=== PATIENT | male | born 1980 | race Hispanic/Latino ===

== ENCOUNTER 2019-11-14 21:09 | Emergency (ER) | payer OTHER, SELFPAY ==
[2019-11-14] MEDS ORDERED: ONDANSETRON HCL 4 MG/2 ML VIAL ONE (21:59)
[2019-11-14] MEDS ORDERED: KETOROLAC TROMETHAMINE 30MG/ML ONE (22:00)
[2019-11-14] MEDS ORDERED: SODIUM CHLORIDE 0.9% 500ML 500 ML IV ONE (22:01)
[2019-11-14 22:03] LABS: CREATININE 0.9 mg/dL (0.5-1.5)
[2019-11-14 22:04] LABS: BASOPHILS % (AUTO) 0.9 % (0.0-5.0); HEMATOCRIT 46.7 % (42-54); LYMPHOCYTES % (AUTO) 19.2 % (21.0-51.0); MEAN CORPUSCULAR HEMOGLOBIN 30.4 pg (27.0-33.0); MEAN CORPUSCULAR HGB CONC 35.1 g/dL (32.0-36.0); MEAN CORPUSCULAR VOLUME 86.5 fL (79-99); MONOCYTES % (AUTO) 18.1 % (3.0-13.0); NEUTROPHILS % (AUTO) 61.4 % (40.0-77.0); PLATELET COUNT (AUTO) 199 K/uL (130-400); RED CELL DISTRIBUTION WIDTH 12.8 % (11.0-15.5); WHITE BLOOD COUNT (AUTO) 7.4 K/uL (4.8-10.8)
[2019-11-14 22:07] LABS: ALBUMIN 4.5 g/dL (3.5-5.0); BILIRUBIN,TOTAL 0.5 mg/dL (0.2-1.0); TOTAL PROTEIN, SERUM 8.2 g/dL (6.0-8.3)
== END 2019-11-14 23:12 | disposition home or self-care (01) ==
LOC: EDH 21:09
DX: U07.1 COVID-19 (principal); R10.84 Generalized abdominal pain
CPT/HCPCS: 36415; 71045; 74176; 80053; 83690; 84484; 85025; 93005; 96374; 96375; 99285; J1885; J2405; J7040; U0003

== ENCOUNTER 2019-11-17 20:46 | Emergency (ER) | payer OTHER ==
[2019-11-17] MEDS ORDERED: KETOROLAC TROMETHAMINE 60 MG/2 ML VIAL ONE (21:35)
== END 2019-11-17 21:49 | disposition home or self-care (01) ==
LOC: EDH 20:46
DX: U07.1 COVID-19 (principal); R10.13 Epigastric pain
CPT/HCPCS: 96372; 99283; J1885